=== PATIENT | female | born 1935 | race Native Hawaiian/Other Pacific Islander ===

== ENCOUNTER 2021-04-27 16:47 | Emergency (ER) | payer OTHER ==
[~2021-04-27] VITALS: Ht 152.4 cm; Wt 48.5 kg
[2021-04-27 21:55] VITALS: BP 138/68; TEMP 97.8
== END 2021-04-27 21:55 | disposition home or self-care (01) ==
LOC: ED 16:47
PROC: 0HQDXZZ Repair Right Lower Arm Skin, External Approach (ICD-10-PCS; principal; 2021-04-27)
PROC: 0HDDXZZ Extraction of Right Lower Arm Skin, External Approach (ICD-10-PCS; 2021-04-27)
DX: S51.811A Laceration without foreign body of right forearm, initial encounter (principal); S16.1XXA Strain of muscle, fascia and tendon at neck level, initial encounter; V89.2XXA Person injured in unspecified motor-vehicle accident, traffic, initial encounter; Y92.89 Other specified places as the place of occurrence of the external cause
CPT/HCPCS: 90471; 90715; 99283; J7040